=== PATIENT | male | born 1935 | race Hispanic/Latino ===

== ENCOUNTER 2018-05-27 19:27 | Emergency (ER) | payer MEDICARE, OTHER ==
[2018-05-27] MEDS ORDERED: COREG3.125 MG PO (19:42)
[2018-05-27] MEDS ORDERED: KEPPRA750 M2 PO (19:45)
[2018-05-27] MEDS ORDERED: CLOPIDOGREL75 MG PO (19:46)
[2018-05-27 19:47] LABS: GFR > 60 ML/MIN (>=60 (CALC)); GFR FOR AFR.AMER. > 60 ML/MIN (>=60 (CALC))
[2018-05-27] MEDS ORDERED: METFORMIN HCL1000 MG PO (19:47)
[2018-05-27] MEDS ORDERED: FARXIGA10 MG PO (19:48)
[2018-05-27] MEDS ORDERED: BAYER ASPIRIN E81 MG PO (19:49)
[2018-05-27 19:51] LABS: HEMATOCRIT 39.9 % (39.0-50.0); HEMOGLOBIN 12.8 g/dl (14.0-18.0); IMMATURE GRANULOCYTES 0.4 % (0.0-5.0); MEAN CELL VOLUME 90.9 fL CALC (80.0-100.0); MEAN CORPUSCULAR HGB 29.2 pG CALC (26.0-32.0); MEAN CORPUSCULAR HGB CONC 32.1 g/L CALC (32.0-36.0); NEUT# 6.52 thou/uL (1.82-7.42); RED BLOOD COUNT 4.39 mill/uL (4.70-6.10); RED CELL DISTRI WIDTH 14.2 % (11.5-15.5)
[2018-05-27 20:04] LABS: ALBUMIN 4.1 g/dL (3.2-5.0); ALKALINE PHOSPHATASE 147 u/l (38-126); ANION GAP 19 (6-22 (CALC)); BILIRUBIN, TOTAL 2.2 mg/dL (0.0-1.4); BUN 27 mg/dL (8-23); BUN/CREATININE RATIO 31 (12-20 (CALC)); CARBON DIOXIDE 20 mmol/l (22-30); CHLORIDE 104 mmol/l (95-108); CREATININE 0.9 mg/dL (0.7-1.3); GFR > 60 ML/MIN (>=60 (CALC)); GFR FOR AFR.AMER. > 60 ML/MIN (>=60 (CALC)); POTASSIUM 4.9 mmol/l (3.5-5.1); SGOT/AST 174 u/l (19-48); SODIUM 138 mmol/l (137-146); TOTAL PROTEIN 7.2 g/dL (6.3-8.2)
[2018-05-27 20:14] LABS: INTERNATIONAL NORMALIZED RATIO 1.2 RATIO (0.7-1.3); PROTHROMBIN TIME 12.9 SECONDS (9.0-12.5)
[2018-05-27 20:16] LABS: MYOGLOBIN 71 ng/mL (0 - 121)
[2018-05-27 21:14] VITALS: BP 182/84
== END 2018-05-27 21:14 | disposition short-term general hospital (02) ==
LOC: ED 19:27
PROVIDERS: Emergency Medicine
DX: R53.1 Weakness (principal); R47.01 Aphasia; G40.909 Epilepsy, unspecified, not intractable, without status epilepticus; T42.76XA Underdosing of unspecified antiepileptic and sedative-hypnotic drugs, initial encounter; Z91.128 Patient's intentional underdosing of medication regimen for other reason; Z86.73 Personal history of transient ischemic attack (TIA), and cerebral infarction without residual deficits
CPT/HCPCS: J1953

== ENCOUNTER → 2018-06-18 | Outpatient (REF) | payer MEDICARE, OTHER ==
[~2018-06-18] MED LIST: BAYER ASPIRIN E81 MG PO; CLOPIDOGREL75 MG PO; COREG3.125 MG PO; FARXIGA10 MG PO; KEPPRA750 M2 PO; METFORMIN HCL1000 MG PO
== END | disposition home or self-care (01) ==
LOC: LABSPEC 12:19
DX: R53.83 Other fatigue (principal); R74.8 Abnormal levels of other serum enzymes; D64.9 Anemia, unspecified

== ENCOUNTER 2018-09-21 23:49 | Emergency (ER) | payer MEDICARE, OTHER ==
[~2018-09-21] VITALS: Ht 175.3 cm; Wt 59.1 kg
[2018-09-22] MEDS ORDERED: EC ASPIRIN325 MG PO (00:25)
[2018-09-22] MEDS ORDERED: LASIX 40 MG TAB40 MG PO (00:25)
[2018-09-22] MEDS ORDERED: FARXIGA10 MG PO (00:26)
[2018-09-22] MEDS ORDERED: XARELTO10 MG PO (00:26)
[2018-09-22] MEDS ORDERED: METFORMIN500 MG PO (00:27)
[2018-09-22] MEDS ORDERED: POT CHLORIDE10 ME1 PO (00:27)
[2018-09-22] MEDS ORDERED: ACIDOPHILUS1 CAP PO (00:28)
[2018-09-22] MEDS ORDERED: FOLIC ACID1 MG PO (00:28)
[2018-09-22] MEDS ORDERED: COREG3.125 MG PO (00:29)
[2018-09-22] MEDS ORDERED: JANUVIA100 MG PO (00:29)
[2018-09-22] MEDS ORDERED: VITAMIN D3400 UNI2 PO (00:29)
[2018-09-22 00:58] LABS: HEMATOCRIT 36.7 % (39.0-50.0); HEMOGLOBIN 11.1 g/dl (14.0-18.0); IMMATURE GRANULOCYTES 0.4 % (0.0-5.0); MEAN CELL VOLUME 85.5 fL CALC (80.0-100.0); MEAN CORPUSCULAR HGB 25.9 pG CALC (26.0-32.0); MEAN CORPUSCULAR HGB CONC 30.2 g/L CALC (32.0-36.0); NEUT# 4.25 thou/uL (1.82-7.42); RED BLOOD COUNT 4.29 mill/uL (4.70-6.10); RED CELL DISTRI WIDTH 15.9 % (11.5-15.5)
[2018-09-22 01:08] LABS: INTERNATIONAL NORMALIZED RATIO 1.3 RATIO (0.7-1.3); PROTHROMBIN TIME 13.4 SECONDS (9.0-12.5)
[2018-09-22 01:13] LABS: ALBUMIN 4.1 g/dL (3.2-5.0); ALKALINE PHOSPHATASE 88 u/l (38-126); ANION GAP 18 (6-22 (CALC)); BUN 35 mg/dL (8-23); BUN/CREATININE RATIO 29 (12-20 (CALC)); CARBON DIOXIDE 24 mmol/l (22-30); CHLORIDE 103 mmol/l (95-108); CREATININE 1.2 mg/dL (0.7-1.3); GFR 58 ML/MIN (>=60 (CALC)); GFR FOR AFR.AMER. > 60 ML/MIN (>=60 (CALC)); POTASSIUM 4.1 mmol/l (3.5-5.1); SODIUM 141 mmol/l (137-146); TOTAL PROTEIN 7.2 g/dL (6.3-8.2)
[2018-09-22 01:19] LABS: BILIRUBIN, TOTAL 0.9 mg/dL (0.0-1.4); SGOT/AST 25 u/l (19-48)
[2018-09-22 01:25] LABS: URINE BILIRUBIN - DIPSTICK NEGATIVE (NEGATIVE); URINE BLOOD DIPSTICK MODERATE (NEGATIVE); URINE COLOR YELLOW; URINE GLUCOSE - DIPSTICK >=1000 mg/dL (NEGATIVE); URINE KETONE NEGATIVE (NEGATIVE); URINE LEUK ESTERASE NEGATIVE (NEGATIVE); URINE NITRITE - DIPSTICK NEGATIVE (Negative); URINE PH 5.5 (4.5-8.0); URINE PROTEIN - DIPSTICK NEGATIVE (NEG-TRACE); URINE UROBILINOGEN - DIPSTICK 0.2 E.U./dL (0.2)
[2018-09-22 01:45] LABS: URINE SQUAMOUS EPITHELIAL CELL RARE EPI/hpf (0-FEW); URINE WBC 0-2 WBC/hpf (0-5)
[2018-09-22 02:02] VITALS: BP 140/63
== END 2018-09-22 02:30 | disposition home or self-care (01) ==
LOC: ED 23:49
PROVIDERS: Emergency Medicine
PROC: 0HQEXZZ Repair Left Lower Arm Skin, External Approach (ICD-10-PCS; principal; 2018-09-22)
PROC: 0HQDXZZ Repair Right Lower Arm Skin, External Approach (ICD-10-PCS; 2018-09-22)
DX: S51.811A Laceration without foreign body of right forearm, initial encounter (principal); S51.812A Laceration without foreign body of left forearm, initial encounter; Z79.02 Long term (current) use of antithrombotics/antiplatelets

== ENCOUNTER 2018-09-23 10:34 | Emergency (ER) | payer MEDICARE, OTHER ==
[~2018-09-23] VITALS: Ht 175.3 cm; Wt 59.0 kg
[~2018-09-23 10:34] MED LIST changes: +ACIDOPHILUS1 CAP PO; +EC ASPIRIN325 MG PO; +FOLIC ACID1 MG PO; +JANUVIA100 MG PO; +LASIX 40 MG TAB40 MG PO; +METFORMIN500 MG PO; +POT CHLORIDE10 ME1 PO; +VITAMIN D3400 UNI2 PO; +XARELTO10 MG PO
[2018-09-23 11:27] LABS: HEMATOCRIT 37.9 % (39.0-50.0); IMMATURE GRANULOCYTES 0.8 % (0.0-5.0); MEAN CORPUSCULAR HGB 25.8 pG CALC (26.0-32.0); NEUT# 5.71 thou/uL (1.82-7.42); RED BLOOD COUNT 4.26 mill/uL (4.70-6.10); RED CELL DISTRI WIDTH 16.4 % (11.5-15.5)
[2018-09-23 11:42] LABS: ANION GAP 25 (6-22 (CALC)); BUN 27 mg/dL (8-23); BUN/CREATININE RATIO 26 (12-20 (CALC)); CHLORIDE 102 mmol/l (95-108); CREATININE 1.1 mg/dL (0.7-1.3); GFR > 60 ML/MIN (>=60 (CALC)); GFR FOR AFR.AMER. > 60 ML/MIN (>=60 (CALC)); POTASSIUM 3.9 mmol/l (3.5-5.1); SODIUM 138 mmol/l (137-146)
[2018-09-23 12:03] LABS: CARBON DIOXIDE 15 mmol/l (22-30)
[2018-09-23 15:32] VITALS: BP 119/60
== END 2018-09-23 15:32 | disposition short-term general hospital (02) ==
LOC: ED 10:34
PROVIDERS: Family Medicine
DX: G40.409 Other generalized epilepsy and epileptic syndromes, not intractable, without status epilepticus (principal); E11.9 Type 2 diabetes mellitus without complications; I10 Essential (primary) hypertension; F03.90 Unspecified dementia, unspecified severity, without behavioral disturbance, psychotic disturbance, mood disturbance, and anxiety; I25.2 Old myocardial infarction; Z86.73 Personal history of transient ischemic attack (TIA), and cerebral infarction without residual deficits

== ENCOUNTER 2018-11-29 21:06 | Emergency (ER) | payer MEDICARE, OTHER ==
[~2018-11-29] VITALS: Ht 175.3 cm; Wt 64.0 kg
[2018-11-29 22:00] VITALS: BP 100/61
== END 2018-11-29 22:00 | disposition home or self-care (01) ==
LOC: ED 21:06
DX: S61.210A Laceration without foreign body of right index finger without damage to nail, initial encounter (principal); E11.9 Type 2 diabetes mellitus without complications; I10 Essential (primary) hypertension; F03.90 Unspecified dementia, unspecified severity, without behavioral disturbance, psychotic disturbance, mood disturbance, and anxiety; I25.2 Old myocardial infarction; W45.8XXA Other foreign body or object entering through skin, initial encounter; Y93.E8 Activity, other personal hygiene; Z95.1 Presence of aortocoronary bypass graft; Z95.5 Presence of coronary angioplasty implant and graft; Z79.01 Long term (current) use of anticoagulants

== ENCOUNTER 2019-08-04 | Emergency (ER) | payer MEDICARE, OTHER ==
[~2019-08-04] MED LIST changes: +METFORMIN500 M2 PO; -METFORMIN500 MG PO
[2019-08-04 15:41] LABS: HEMOGLOBIN 9.6 g/dl (14.0-18.0); MEAN CELL VOLUME 85.1 fL CALC (80.0-100.0); MEAN CORPUSCULAR HGB 27.4 pG CALC (26.0-32.0); MEAN CORPUSCULAR HGB CONC 32.2 g/dL CAL (32.0-36.0); RED BLOOD COUNT 3.5 mill/uL (4.70-6.10); RED CELL DISTRI WIDTH 15.5 % (11.5-15.5)
[2019-08-04 15:54] LABS: ALBUMIN 3.4 g/dL (3.2-5.0); ALKALINE PHOSPHATASE 60 u/l (38-126); ANION GAP 16 (6-22 (CALC)); BILIRUBIN, TOTAL 1.8 mg/dL (0.0-1.4); BUN 38 mg/dL (8-23); BUN/CREATININE RATIO 30 (12-20 (CALC)); CARBON DIOXIDE 21 mmol/l (22-30); CHLORIDE 108 mmol/l (95-108); CREATININE 1.3 mg/dL (0.7-1.3); GFR 53 ML/MIN (>=60 (CALC)); GFR FOR AFR.AMER. > 60 ML/MIN (>=60 (CALC)); LIPASE 34 u/l (23-300); POTASSIUM 5.1 mmol/l (3.5-5.1); SGOT/AST 32 u/l (19-48); SODIUM 140 mmol/l (137-146); TOTAL PROTEIN 6.2 g/dL (6.3-8.2)
[2019-08-04 16:07] LABS: HEMATOCRIT 29.8 % (39.0-50.0); IMMATURE GRANULOCYTES 0.5 % (0.0-5.0); NEUT# 3.95 thou/uL (1.82-7.42)
[2019-08-04] MEDS ORDERED: BACTRIM DS1 TAB PO (16:32)
[2019-08-04] MEDS ORDERED: PRAVASTATIN20 MG PO (16:36)
[2019-08-04] MEDS ORDERED: LEVETIRACETAM1000 MG PO (16:36)
--- NOTE | 2019-08-07 15:45 | NUR ---
Called [facility], [address] [place] [address]; called COVID results to Haylie, patient's nurse and faxed results to [phone] with confirmation of receipt.
== END 2019-08-04 17:35 | disposition short-term general hospital (02) ==
PROVIDERS: Family Medicine
DX: J18.9 Pneumonia, unspecified organism (principal); D69.6 Thrombocytopenia, unspecified; I10 Essential (primary) hypertension; E11.9 Type 2 diabetes mellitus without complications; G40.909 Epilepsy, unspecified, not intractable, without status epilepticus; F03.90 Unspecified dementia, unspecified severity, without behavioral disturbance, psychotic disturbance, mood disturbance, and anxiety; Z86.73 Personal history of transient ischemic attack (TIA), and cerebral infarction without residual deficits; Z79.84 Long term (current) use of oral hypoglycemic drugs; Z20.828 Contact with and (suspected) exposure to other viral communicable diseases
CPT/HCPCS: J0692

== ENCOUNTER 2019-10-16 20:58 | Inpatient (IN) | payer MEDICARE, OTHER ==
[~2019-10-16] VITALS: Ht 175.3 cm; Wt 55.3 kg
[~2019-10-16 20:58] MED LIST changes: +BACTRIM DS1 TAB PO; +LEVETIRACETAM1000 MG PO; +PRAVASTATIN20 MG PO
--- NOTE | 2019-10-16 21:14 | NUR ---
TO ROOM FOR TRIAGE
--- NOTE | 2019-10-16 21:45 | NUR ---
A/O M WITH C/O R FOOT PAIN ULCER ON 2ND TOE RECIEVING OP TX.THERE.THERE IS A ESCHAR COVERED ULCER AT 2ND TOE R FOOT WITH ERYTHEMA SURROUNDING THE TOE.NO STREAKING SL EDEMA TO THWE TOE.PT HX DM
[2019-10-16 22:42] LABS: IMMATURE GRANULOCYTES 0.6 % (0.0-5.0); MEAN CORPUSCULAR HGB CONC 28.9 g/dL CAL (32.0-36.0); NEUT# 8.59 thou/uL (1.82-7.42); RED BLOOD COUNT 4.99 mill/uL (4.70-6.10); RED CELL DISTRI WIDTH 20.7 % (11.5-15.5)
[2019-10-16 22:43] LABS: HEMATOCRIT 38.1 % (39.0-50.0); MEAN CELL VOLUME 76.4 fL CALC (80.0-100.0)
[2019-10-16 22:56] LABS: ALBUMIN 3.8 g/dL (3.2-5.0); ANION GAP 17 (6-22 (CALC)); BUN 43 mg/dL (8-23); BUN/CREATININE RATIO 39 (12-20 (CALC)); CARBON DIOXIDE 20 mmol/l (22-30); CHLORIDE 113 mmol/l (95-108); CREATININE 1.1 mg/dL (0.7-1.3); GFR > 60 ML/MIN (>=60 (CALC)); GFR FOR AFR.AMER. > 60 ML/MIN (>=60 (CALC)); POTASSIUM 4.3 mmol/l (3.5-5.1); SGOT/AST 30 u/l (19-48); SODIUM 146 mmol/l (137-146); TOTAL PROTEIN 7.1 g/dL (6.3-8.2)
[2019-10-16 22:58] LABS: ALKALINE PHOSPHATASE 153 u/l (38-126); BILIRUBIN, TOTAL 0.9 mg/dL (0.0-1.4)
--- NOTE | 2019-10-16 23:35 | NUR ---
IV MED INFUSING PT IS IN NAD.[facility] IS PRIMARY HX SOURCE.
[2019-10-16 23:45] LABS: URINE BILIRUBIN - DIPSTICK NEGATIVE (NEGATIVE); URINE BLOOD DIPSTICK NEGATIVE (NEGATIVE); URINE COLOR YELLOW; URINE GLUCOSE - DIPSTICK >=1000 mg/dL (NEGATIVE); URINE KETONE NEGATIVE (NEGATIVE); URINE LEUK ESTERASE NEGATIVE (NEGATIVE); URINE NITRITE - DIPSTICK NEGATIVE (Negative); URINE PH 5.5 (4.5-8.0); URINE PROTEIN - DIPSTICK NEGATIVE (NEG-TRACE); URINE UROBILINOGEN - DIPSTICK 0.2 E.U./dL (0.2)
--- NOTE | 2019-10-17 00:50 | NUR ---
W/P/D SKIN SR NO ECTOPY.PT IS ASLEEP QUIET LY NO DRAINAGE FROM TOE ULCER
--- NOTE | 2019-10-17 01:40 | NUR ---
PT VOIDED 100CC YELLOW URINE.IV INFUSION L SL UNREMARKABLE.NO S/S OF PAIN
--- NOTE | 2019-10-17 02:22 | NUR ---
W/P/D SKIN NO FOCAL DEFICITS SR NO ECTOPY NO RESP DIFF.
--- NOTE | 2019-10-17 03:55 | NUR ---
PHONE REPIRT TO NURSE TRISTAN ON MS
--- NOTE | 2019-10-17 04:00 | NUR ---
PT TRANSPORTED TO [place] VIA IN STABNLE CONDITION
[2019-10-17 04:25] VITALS: BP 116/64
--- NOTE | 2019-10-17 05:28 | NUR ---
RECEIVED PT TO THE FLOOR VIA WHEELCHAIR TRANSPORT. PT IS DANISH SPEAKING AND POOR HISTTORIAN. RESPIRATIONS ARE NON LABORED. HEART RYTHM REGULAR. LUNG SOUNDS ARE DIMINISHED. ABDOMEN IS SOFT AND NON TENDER AND BOWEL SOUNDS ARE PRESENT. PT IS ALERT WITH CONFUSION AND INTERPRETATION DONE THROUGH STAFF.PT HAS MULTIPLE BRUISING AND SKIN TEARS ON BILATERAL ARMS. DISCOLORATION TO RIGTH FOOT AND DIABETIC ULCER NOTED THAT HAS ESCHAR NOTED. NORMAL SALINE STARTED AT 125ML\HR AND WILL START ZOSYN THERAPY.
[2019-10-17 05:55] LABS: HEMATOCRIT 36.1 % (39.0-50.0); HEMOGLOBIN 10.5 g/dl (14.0-18.0); IMMATURE GRANULOCYTES 0.5 % (0.0-5.0); MEAN CORPUSCULAR HGB 22.1 pG CALC (26.0-32.0); MEAN CORPUSCULAR HGB CONC 29.1 g/dL CAL (32.0-36.0); NEUT# 6.49 thou/uL (1.82-7.42); RED BLOOD COUNT 4.75 mill/uL (4.70-6.10); RED CELL DISTRI WIDTH 20.4 % (11.5-15.5)
--- NOTE | 2019-10-17 07:32 | NUR ---
PT LAYING IN BED. PT CONFUSED AND CALLING OUT FOR HIS "MOM". ORIENTED PT TO SELF, TIME AND PLACE. PT GRUNTING, ASKED IF HE WAS IN PAIN, PT POINTED TO RIGHT KNEE. BED ALARM IN PLACE FOR SAFETY. PT INSTRUCTED NOT TO GET OUT OF BED WITHOUT HELP. DIABETIC WOUND NOTED TO SECOND TOE OF THE RT FOOT. ASSESSMENT COMPLETED. DISCUSSED POC. CALL LIGHT IN REACH. CONTINUE TO MONITOR.
--- NOTE | 2019-10-17 12:40 | NUR ---
PT SLEEPING IN BED. RESP EVEN AND UNLABORED. CALL LIGHT IN REACH. CONTINUE TO MONITOR.
--- NOTE | 2019-10-17 17:40 | NUR ---
DAUGHTER AT BEDSIDE, PER DAUGHTER PT HAD AN APPOINTMENT SCHEDULED WITH DR BUI FOR WOUND CARE ON FRIDAY. PTS DAUGHTER OPENED TO REHAB.
[2019-10-17 19:05] VITALS: BP 104/64
--- NOTE | 2019-10-17 20:51 | NUR ---
PT IN BED WITH EYES CLOSED. NO S/S OF DISTRESS OR DISCOMFORT. NORMAL SALINE RUNNING AT 125ML/HR AND TOLERATED WELL. BRUISING NOTED TO BILATERAL ARMS AND LEGS. CONTINUES WITH ULCERS TO RIGTH 2ND TOE WITH NO DRAINAGE NOTED. MEDICATIONS GIVEN AND TOLERATED WELL. CALL LIGHT IS WITHIN REACH AND BED IN LOWEST POSITION. BED ALARM IN PLACE.
[2019-10-18 00:09] VITALS: BP 101/59
[2019-10-18 04:46] VITALS: BP 110/64
--- NOTE | 2019-10-18 06:12 | NUR ---
PT IN BED WITH EYES CLOSED. NO RESPIRATORY DISTRESS NOTED. MEDICATIONS GIVEN AND TOLERATED WELL. CONTINUES NS 0.9% AT 100ML/H AND TOLERATING WELL. PT IS FALL RISK AND BED ALARM ON AND FUNCTIONING WELL. CONTINUES ON IV ABT THERAPY WITH NO ADVERSE SIDE EFFECTS. DRESSING CLEAN DRY AND INTACT TO BILAT ARM SKIN TEARS. BED IN LOWEST POSITION AND CALL LIGHT WITHIN REACH.
[2019-10-18 07:40] VITALS: BP 116/73
--- NOTE | 2019-10-18 07:40 | NUR ---
ASSESSMENT IS COMPLETED: IV SITE IS FREE FROM REDNESS OR EDEMA. HR IS REG,PULSES ARESTRONG X4, ABD IS SOFT WITH ACTIVE BS. BREATH SOUNDS ARE CLEAR AND DIMINISHED. CONTINUE TO OSBERVE AND MONITOR.
--- NOTE | 2019-10-18 08:55 | NUR ---
IV SITE BEGAN TO LEAK AND WAS TAKEN OUT. CATHETER INTACT. ATTEMPTED X4 TOTAL TO RESTICK PT UNSUCCESSFUL .
--- NOTE | 2019-10-18 09:00 | NUR ---
HAD MYDALIS SPEAK TO PT RE: IV AND MEDICATION. WANTING WATER.GAVE WATER AND THEN PT TOOK MEDICATIONS. WILL ALLOW US TO RESTART THE IV .
[2019-10-18 11:27] LABS: HEMATOCRIT 37.6 % (39.0-50.0); HEMOGLOBIN 11.2 g/dl (14.0-18.0); MEAN CELL VOLUME 74.3 fL CALC (80.0-100.0); MEAN CORPUSCULAR HGB 22.1 pG CALC (26.0-32.0); MEAN CORPUSCULAR HGB CONC 29.8 g/dL CAL (32.0-36.0); RED BLOOD COUNT 5.06 mill/uL (4.70-6.10); RED CELL DISTRI WIDTH 20.8 % (11.5-15.5)
[2019-10-18 11:55] LABS: ANION GAP 10 (6-22 (CALC)); BUN 29 mg/dL (8-23); BUN/CREATININE RATIO 33 (12-20 (CALC)); C-REACTIVE PROTEIN 2.1 mg/dL (0-0.9); CARBON DIOXIDE 21 mmol/l (22-30); CHLORIDE 113 mmol/l (95-108); CREATININE 0.9 mg/dL (0.7-1.3); GFR > 60 ML/MIN (>=60 (CALC)); GFR FOR AFR.AMER. > 60 ML/MIN (>=60 (CALC)); POTASSIUM 3.9 mmol/l (3.5-5.1); SODIUM 139 mmol/l (137-146)
--- NOTE | 2019-10-18 12:15 | NUR ---
PT IS RELAXING IN BED WITH NO DISTRESS NOTED. NO IV SITE OBTAINED.
--- NOTE | 2019-10-18 13:46 | NUR ---
CALLED DR. CLEMENTS [facility] AT [phone] SPOKE TO FLORA GAVE INFORMTAION REGARDING THIS PT. STATED SHE WILL CALL WHEN SHE HEARS SOMETHING BACK FROM HIM.
--- NOTE | 2019-10-18 14:30 | NUR ---
FAMILY IN TO SEE PT , DEBBY ESPINOSA SPEAK TO HER RE: ULTRA SOUND AND ALSO RE: DISCHARGE PLANNING. WITH CASE MANAGEMENT. CONTINUE TO OSBERVE AND MONITOR.
--- NOTE | 2019-10-18 16:15 | NUR ---
PT IS RELAXING IN BED WITH NO DISTRESS NOTED. IV SITE IS FREE FROM REDNESS OR EDEMA. CONTINUE TO CHRISTIANNE AND AURE
[2019-10-18 16:28] VITALS: BP 123/72
[2019-10-18 18:55] VITALS: BP 119/72
--- NOTE | 2019-10-18 19:00 | NUR ---
RECEIVED REPORT FROM NURSE WILLOUGHBY PATIENT RESTING IN BED, BREATHING EVEN AND UNLABORED, CALL LIGHT AT REACH.
--- NOTE | 2019-10-18 19:44 | NUR ---
SPOKE WITH DR STUBBS, UNABLE TO GETA AN IV STARTED ON PT WILL ATTMEPT A PICCLINE IN THE AM NOT WORRIED ABOUT ABT TONIGHT.
--- NOTE | 2019-10-18 20:00 | NUR ---
PATIENT AWAKE AT THIS TIME, NO IV MD AWARE, BREATHING EVEN AND UNLABORED, MULTIPLE SKIN TEAR ON BUE, BED ALARM IN PLACE.
--- NOTE | 2019-10-19 | NUR ---
PATIENT RESTING IN BED EYES CLOSED BREATHING EVEN AND UNLABORED, BED ALARM IN PLACE.
--- NOTE | 2019-10-19 04:00 | NUR ---
PATIENT RESTING IN BED WOITH EYES CLOSED, BREATHING EVEN AND UNLABRORED CALL LIGHT AT REACH, BED ALARM IN PLACE.
[2019-10-19 04:05] VITALS: BP 131/74
[2019-10-19 05:35] LABS: HEMOGLOBIN 11.4 g/dl (14.0-18.0); MEAN CELL VOLUME 74.4 fL CALC (80.0-100.0); MEAN CORPUSCULAR HGB 22.3 pG CALC (26.0-32.0); RED BLOOD COUNT 5.11 mill/uL (4.70-6.10); RED CELL DISTRI WIDTH 20.8 % (11.5-15.5)
[2019-10-19 06:00] LABS: CREATININE 1.4 mg/dL (0.7-1.3); TOTAL PROTEIN 6.3 g/dL (6.3-8.2)
[2019-10-19 06:05] LABS: BILIRUBIN, TOTAL 1.6 mg/dL (0.0-1.4); POTASSIUM 4.7 mmol/l (3.5-5.1)
[2019-10-19 07:26] VITALS: BP 122/75
--- NOTE | 2019-10-19 08:21 | NUR ---
PT IN DEL WITH EYES OPEN. ABLE TO MAKE NEEDS KNOWN IN IRAQI AND STAF TO ASSIT WITH INTERPRETATION. rESIDENT IA ALERT WITH CONFUSED TO PLACE TIME AND EVENT. CURRENTLY NO IV LINE AND SCHEDULED FOR PICC PLACEMENT THIS AM. PT ATTEMPTING TO GET OUT OF BED WITHOUT ASSIST AND NEEDED CONTINOUS REMINDERS NOT TO GET OOB WITHOUT ASSIST. BED IN LOWEST POSITION AND CALL LIGHT IS WITHIN REACH. RESIDENT IS SITTING UP IN BED AT THIS TIME EATING BREAKFAST. HAS DRESSING TO BILATERAL ARMS THAT ARE DRY AND INTACT. CONTINUES WITH ESCHAR TO RIGTH SENCONF TOE WITH REDNESS NOTED AND LOWER EXTRENMITIES COOL TO TOUCH.ED ALARM ON. WILL CONTINUE TO OBSERVE PT.
[2019-10-19 15:00] VITALS: BP 123/70
--- NOTE | 2019-10-19 19:07 | NUR ---
RECEIVED REPORT FROM DAY NURSE PATIENT RESTING IN BED WITH EYES CLOSED, SIDE LYING POSITION, NO DISCOMFORTS NOTED AT THIS TIME, CALL LIGHT AT REACH.
[2019-10-19 20:00] VITALS: BP 109/68
--- NOTE | 2019-10-19 20:30 | NUR ---
PATIENT AWAKE AT THIS TIME, WITH PICCLINE ON BETO, PATENT FLUSHES WELL, BREATHING EVEN AND UNLABORED, NOT IN DISTRESS , BED ALARM IN PLACE.
--- NOTE | 2019-10-19 21:30 | NUR ---
BLOOD SUGAR 70MG/DL, DID NOT EAT SUPPER YET PATIENT AWAKE ASSISTED TO FEED.
--- NOTE | 2019-10-20 | NUR ---
BED BATH GIVEN AT THIS TIME, PATEINET AWAKE CALLING MOM, BREATHING EVEN UNLABORED, BED ALARM IN PLACE.
[2019-10-20 04:15] VITALS: BP 121/78
--- NOTE | 2019-10-20 05:04 | NUR ---
PATIENT AWAKE AT THIS TIME, CALLS "MOM" BREATHING EVEN UNLABORED, NOT IN DISTRESS CALL LIGHT AT REACH.
--- NOTE | 2019-10-20 08:49 | NUR ---
RECEIVED AM REPORT ON PT AND IN BED WITH EYES OPEN AND IN PLEASNAT MOOD. PT IS UKRAINIAN SPEAKING. BREAKFAST INTAKE ADEQUATE ADEQUATE. MEDICATIONS GIVEN ADN TOLERATED WELL. SSC GIVEN PRESCRIBED. DRESSING INTACT TI BILAT ARMS DUE TO SKIN TEARS. PT REMOVED DRESSING TO RIGHT 2ND TOE. WILL REAPPLY DRESSING. HOB ELEVATED AND BED IN LOWEST POSITION. BED ALARM ON. WILL CONTINUE TO OBSERVE.
[2019-10-20 10:17] LABS: ALBUMIN 3.1 g/dL (3.2-5.0); ALKALINE PHOSPHATASE 155 u/l (38-126); BILIRUBIN, TOTAL 1.9 mg/dL (0.0-1.4); BUN 32 mg/dL (8-23); BUN/CREATININE RATIO 28 (12-20 (CALC)); CHLORIDE 114 mmol/l (95-108); CREATININE 1.2 mg/dL (0.7-1.3); GFR 58 ML/MIN (>=60 (CALC)); GFR FOR AFR.AMER. > 60 ML/MIN (>=60 (CALC)); POTASSIUM 4.2 mmol/l (3.5-5.1); SGOT/AST 301 u/l (19-48); SODIUM 138 mmol/l (137-146); TOTAL PROTEIN 6.3 g/dL (6.3-8.2)
[2019-10-20 10:18] LABS: ANION GAP 15 (6-22 (CALC)); CARBON DIOXIDE 13 mmol/l (22-30)
[2019-10-20 16:15] VITALS: BP 94/59
[2019-10-20 18:54] VITALS: BP 105/71
--- NOTE | 2019-10-20 19:03 | NUR ---
ULTRASOUND OF LIVER COMPLETED AND PT DIET REINSTATED. IN BED WITH EYES CLOSED. FLUIDS GIVEN AND TOLERATED WELL. MD IN AND AWARE OF ABNORMAL LABS. BED IN LOWEST POSITION AND CALL LIGHT WITHIN REACH. BED ALARM ON.
--- NOTE | 2019-10-20 19:22 | NUR ---
PT RESTING IN BED NO SIGNS OF DISTRESS NOTED, RESP EVEN AND UNLABORED. PT CONFUSED, CAN ONLY STATE HIS NAME. ATTEMPTED TO DISCUSS POC, PT REQUIRES REINFORCMENT. BED ALARM FOR SAFETY. IVF INFUSING WELL, DRESSINGS TO BUE AND FOOT CDI. ASSESSMENT COMPLETED, CALL LIGHT IN REACH,CONTINUE TO MONITOR.
--- NOTE | 2019-10-20 23:10 | NUR ---
PT YELLING OUT WITH EYES CLOSED, EASILY AROUSED TO VERBAL STIMULI, ASSISTED TRAUMA MANAGER TO CHANGE PT'S BRIEF, PT C/O BEING COLD WARM BLANKET PROVIDED.BED ALARM IN PLACE, CALL LIGHT IN REACH,CONTINUE TO MONITOR.
--- NOTE | 2019-10-21 04:00 | NUR ---
PT CONFUSED CONTINUES TO YELL OUT FOR HIS MOM, ATTEMPTED TO DRAW PT FROM PICC LINE, UNABLE TO OBTAIN, LAB NOTIFIED FOR VENOUS LAB DRAW, BED ALARM FOR SAFETY, CALL LIGHT IN REACH,CONTINUE TO MONITOR.
[2019-10-21 04:18] VITALS: BP 109/63
[2019-10-21 05:36] LABS: HEMOGLOBIN 11.5 g/dl (14.0-18.0); MEAN CELL VOLUME 72.9 fL CALC (80.0-100.0); MEAN CORPUSCULAR HGB 22.1 pG CALC (26.0-32.0); MEAN CORPUSCULAR HGB CONC 30.3 g/dL CAL (32.0-36.0); RED BLOOD COUNT 5.21 mill/uL (4.70-6.10)
[2019-10-21 06:03] LABS: ALBUMIN 2.8 g/dL (3.2-5.0); ALKALINE PHOSPHATASE 136 u/l (38-126); ANION GAP 12 (6-22 (CALC)); BILIRUBIN, TOTAL 1.5 mg/dL (0.0-1.4); BUN 29 mg/dL (8-23); BUN/CREATININE RATIO 28 (12-20 (CALC)); CARBON DIOXIDE 15 mmol/l (22-30); CHLORIDE 115 mmol/l (95-108); GFR > 60 ML/MIN (>=60 (CALC)); GFR FOR AFR.AMER. > 60 ML/MIN (>=60 (CALC)); POTASSIUM 3.9 mmol/l (3.5-5.1); SGOT/AST 239 u/l (19-48); SODIUM 138 mmol/l (137-146); TOTAL PROTEIN 5.7 g/dL (6.3-8.2)
--- NOTE | 2019-10-21 06:10 | NUR ---
PT GLUCOSE 54 PER AM LABS, PT RESTING IN BED, OFFERED ORANGE JUICE, PT SAT UP IN BED AND DRANK ORANGE JUICE, NO SIGNS OF DISTRESS NOTED, RESP EVEN AND UNLABORED. BED ALARM FOR SAFETY, CALL LIGHT IN REACH,CONTINUE TO MONITOR.
[2019-10-21 08:00] VITALS: BP 127/78
[2019-10-21 08:37] VITALS: BP 127/78
--- NOTE | 2019-10-21 09:00 | NUR ---
PT CLEANED UP BY CNAs PER BOWEL AND BLADDER INCONTINENCE. PT AWAKE, ALERT, CONFUSED. PT APPEARS ELDERLY AND FRAIL. LUNGS CLEAR, RA. NO DISTRESS, NO COMPLAINTS.
--- NOTE | 2019-10-21 10:46 | NUR ---
CALLED DR. VEGA AND SPOKE TO HIM REGARDING CONSULTATION ON THIS PT FOR GALLSTONES.
[2019-10-21] MEDS ORDERED: DOXYCYCL HYC100 MG PO (11:19)
[2019-10-21] MEDS ORDERED: KEFLEX500 M1 PO (11:19)
--- NOTE | 2019-10-21 14:44 | NUR ---
PT HAS BEEN DISCHARGED TO [facility]. BROWN FROM [facility] STAFF PICKED UP PT AND PUSHED WHEELCHAIR TO FACILITY ACCOMPANIED BY PT'S DAUGHTER. DAUGHTER VERBALIZES UNDERSTANDING OF DC INSTRUCTIONS, SIGNS DISCHARGE PAPER. PT LEAVES [facility] IN STABLE CONDITION. DIAPER CHANGED JUST PRIOR TO DEPARTURE.
== END 2019-10-21 14:20 | DRG 638 ==
LOC: ED 20:58 → ED-I 10-17 00:04 → ED 10-17 00:41 → ED-I 10-17 00:42 → MS2 10-17 01:06
PROVIDERS: Emergency Medicine; Internal Medicine; Nurse Practitioner Family; ADMIT Internal Medicine; ATTEND Internal Medicine
PROC: 05H933Z Insertion of Infusion Device into Right Brachial Vein, Percutaneous Approach (ICD-10-PCS; principal; 2019-10-19)
DX: E11.621 Type 2 diabetes mellitus with foot ulcer (principal); E87.2 Acidosis; L97.519 Non-pressure chronic ulcer of other part of right foot with unspecified severity; L03.031 Cellulitis of right toe; E11.65 Type 2 diabetes mellitus with hyperglycemia; I10 Essential (primary) hypertension; F03.90 Unspecified dementia, unspecified severity, without behavioral disturbance, psychotic disturbance, mood disturbance, and anxiety; G40.909 Epilepsy, unspecified, not intractable, without status epilepticus; K80.80 Other cholelithiasis without obstruction; E80.6 Other disorders of bilirubin metabolism; R74.8 Abnormal levels of other serum enzymes; I25.2 Old myocardial infarction; Z86.73 Personal history of transient ischemic attack (TIA), and cerebral infarction without residual deficits; Z79.84 Long term (current) use of oral hypoglycemic drugs; Z95.1 Presence of aortocoronary bypass graft; Z95.0 Presence of cardiac pacemaker; Z20.828 Contact with and (suspected) exposure to other viral communicable diseases

== ENCOUNTER 2019-11-30 12:41 | Inpatient (IN) | payer MEDICARE, OTHER ==
[~2019-11-30] VITALS: Ht 175.3 cm; Wt 61.0 kg
[~2019-11-30 12:41] MED LIST changes: +DOXYCYCL HYC100 MG PO; +KEFLEX500 M1 PO
--- NOTE | 2019-11-30 12:41 | NUR ---
PATIENT TO ROOM VIA EMS STRETCHER.
--- NOTE | 2019-11-30 12:45 | NUR ---
PT ARRIVED VIA EMS STRETCHER, PT APPEARS CONFUSED, DROWSY, BRUISING NOTED TO BILATERAL ARMS, SWELLING NOTED TO RIGHT ARM, SLEEVE ALSO NOTED ON THIS ARM. PT HAS DRESSINGS TO RLE, THIS FOOT EVALUATED BY DR LAMAR WITH NO NEW ORDERS PERTAINING TO FOOT. MONITOR SHOWS VENTRICULAR PACED RHYTHM. BP 101/50 UPON ARRIVAL TO ER. ACCUCHECK UPON ARRIVAL WAS 247.
--- NOTE | 2019-11-30 13:15 | NUR ---
SPOKE TO LEX AT [facility]. SHE REPORTS THAT PATIENT HAS BEEN DECLINING FOR THE PAST WEEK WITH INCREASING CONFUSION AND WEAKNESS. YESTERDAY PATIENTS SATURATION DROPPED TO 74% AND HE WAS PLACED ON 2L NC AND NOTICIED YELLOWING OF SKIN. TODAY PATIENT'S SKIN APPEARED MORE YELLOW SO DR DOTSON ADVISED TO SEND HIM TO THE ED.
[2019-11-30 13:22] LABS: HEMATOCRIT 32.7 % (39.0-50.0); IMMATURE GRANULOCYTES 0.5 % (0.0-5.0); MEAN CELL VOLUME 69.6 fL CALC (80.0-100.0); MEAN CORPUSCULAR HGB 19.4 pG CALC (26.0-32.0); MEAN CORPUSCULAR HGB CONC 27.8 g/dL CAL (32.0-36.0); NEUT# 6.7 thou/uL (1.82-7.42); RED BLOOD COUNT 4.7 mill/uL (4.70-6.10); RED CELL DISTRI WIDTH 24.6 % (11.5-15.5)
[2019-11-30 13:26] LABS: URINE BILIRUBIN - DIPSTICK NEGATIVE (NEGATIVE); URINE BLOOD DIPSTICK NEGATIVE (NEGATIVE); URINE CLARITY CLEAR; URINE COLOR YELLOW; URINE GLUCOSE - DIPSTICK >=1000 mg/dL (NEGATIVE); URINE KETONE NEGATIVE (NEGATIVE); URINE LEUK ESTERASE NEGATIVE (Negative); URINE NITRITE - DIPSTICK NEGATIVE (Negative); URINE PH 5.5 (4.5-8.0); URINE PROTEIN - DIPSTICK NEGATIVE (NEG-TRACE); URINE SPECIFIC GRAVITY 1.015
[2019-11-30 13:27] LABS: HEMOGLOBIN 9.1 g/dl (14.0-18.0)
[2019-11-30 13:29] LABS: ALBUMIN 3.1 g/dL (3.2-5.0); CREATININE 1.7 mg/dL (0.7-1.3); TOTAL PROTEIN 6.2 g/dL (6.3-8.2)
[2019-11-30 13:32] LABS: BILIRUBIN, TOTAL 2.2 mg/dL (0.0-1.4)
[2019-11-30] MEDS ORDERED: ASPIRIN ADULT L81 M2 PO (13:37)
[2019-11-30] MEDS ORDERED: JARDIANCE25 MG PO (13:38)
[2019-11-30] MEDS ORDERED: LEVEMIR FL100 UNIT/M SC (13:53)
[2019-11-30] MEDS ORDERED: MULTI VIT PO (13:54)
[2019-11-30] MEDS ORDERED: MIRTAZAPINE15 MG PO (13:55)
[2019-11-30] MEDS ORDERED: XARELTO10 MG PO (13:56)
--- NOTE | 2019-11-30 14:41 | NUR ---
DR LAMAR AT BEDSIDE WITH PT'S DAUGHTER. VERBAL ORDER TO ONLY GIVE ONE LITER OF NS AND HOLD ANTIBIOTICS GIVEN AT THIS TIME.
[2019-11-30 15:00] VITALS: BP 105/67
--- NOTE | 2019-11-30 15:06 | NUR ---
PT ARRIVED TO UNIT VIA STRETCHER WITH ER STAFF; EYES CLOSED AND LETHARGIC; RESPONDS TO PAINFUL STIMULI; MOVES ARMS AND LEGS IN AN EFFORT TO RESIST CARE, BUT VERY WEAK. OPENS EYES AND IS MINIMALLY VERBAL WITH GARBLED SPEECH. RESPIRATIONS EVEN AND UNLABORED ON OXYGEN 2L VIA NC. ASSISTED FROM STRETCHER TO BED WITH 3 PERSON ASSIST. BRIEF REMOVED FOR SKIN ASSESSMENT; NO INCONTINENCE NOTED. STAGE I PRESSURE WOUND TO COCCYX; RIGHT ARM RED, SWOLLEN, BRUISED, WITH VERY THIN SKIN, RIGHT 2ND TOE NECROTIC WITH ULCER BETWEEN 2ND AND 3RD TOE. SKIN IS JAUNDICED AND APPEARS MALNURISHED. LUNGS ARE CLEAR. PACEMAKER APPARENT TO LEFT UPPER CHEST. TELE INTACT. IV FLUID BOLUS INFUSING UPON ARRIVAL; IV SITE APPEARS HEATLHY. PT RESPOSITIONED WITH PILLOWS AND BED ALARM TURNED ON FOR SAFETY. NEEDS ANTICIPATED BY STAFF.
--- NOTE | 2019-11-30 15:16 | NUR ---
REPORT TO LEENA BARAKAT
--- NOTE | 2019-11-30 16:50 | NUR ---
PT TRANSPORTED TO CT VIA STRETCHER WITH [facility] STAFF IN STABLE CONDITION.
--- NOTE | 2019-11-30 17:15 | NUR ---
PT RETURNED TO FLOOR AND ASSIGNED ROOM 260 FOR CLOSER MONITORING. ASSISTED BACK INTO BED WITH 3 PERSON ASSIST; PT TOTAL ASSIST; Q2 TURN AND REPOSITION. 16F OSORIO PLACED AT THIS TIME WITH IMMEDIATE RETURN OF DARK YELLOW URINE. OXYGEN IN PLACE AT 2L VIA NC.
--- NOTE | 2019-11-30 18:01 | NUR ---
RT AT BEDSIDE FOR BREATHING TREATMENT. IV FLUIDS INITIATED AT 50ML/HR. PT SHALLOW BREATHING. JAUNDICE SKIN. REMAINS LETHARGIC.
--- NOTE | 2019-11-30 18:54 | NUR ---
PT SAT UP IN HIGH FOWLERS AND OFFERED DINNER; DECLINED, BUT DID DRINK WATER. CAN MAKE SOME NEEDS KNOWN. MOSTLY NONVERBAL; GARBLED SPEECH. RIGHT SIDED WEAKNESS DUE TO HX OF CVA; SIDE RAILS OF BED PADDED FOR SEIZURE PRECAUTIONS. SAFETY MEASURES IN PLACE.
[2019-11-30 19:07] VITALS: BP 103/70
--- NOTE | 2019-11-30 20:20 | NUR ---
PT RESTING IN BED, NO SIGNS OF DISTRESS NOTED, RESP EVEN AND UNLABORED, SHALLOW. 02 2L NC, PT NON VERBAL. NOTED CONTRACTURES TO BLE, HEEL PROTECTORS TO FEET BILAT. NOTED NECROTIC TOE TO R 2ND DIGIT, IVF TO LW, OSORIO DRAINING TO GRAVITY, CLEAR YELLOW URINE. STAGE 1 TO BUTTOCK, ASSESSMENT COMPLETED, CALL LIGHT IN REACH,CONTINUE TO MONITOR.
--- NOTE | 2019-11-30 20:49 | NUR ---
PT RESTING IN BED, NO SIGNS OF DISTRESS NOTED, RESP EVEN AND UNLABORED. ATTEMPTED TO GIVE PT WATER PT REFUSING, PT NOT ATTEMPTING TO TAKE MEDS, CALL LIGHT IN REACH, BED ALARM FOR SAFETY, CONTINUE TO MONITOR.
[2019-11-30 23:30] VITALS: BP 87/61
[2019-12-01] VITALS (7 sets, daily range): BP systolic 88–109; BP diastolic 61–78
--- NOTE | 2019-12-01 | NUR ---
PT RESTING IN BED, NO SIGNS OF DISTRES SNOTED, RESP EVEN AND UNLABORED. CALL LIGHT IN REACH,CONTINUE TO MONITOR.
--- NOTE | 2019-12-01 04:04 | NUR ---
PT RESTING IN BED, REPOSITIONED IN BED, CALL LIGHT IN REACH,CONTINUE TO MONITOR.
[2019-12-01 06:15] LABS: HEMATOCRIT 30.8 % (39.0-50.0); HEMOGLOBIN 9.2 g/dl (14.0-18.0); IMMATURE GRANULOCYTES 0.7 % (0.0-5.0); MEAN CELL VOLUME 65.8 fL CALC (80.0-100.0); MEAN CORPUSCULAR HGB 19.7 pG CALC (26.0-32.0); MEAN CORPUSCULAR HGB CONC 29.9 g/dL CAL (32.0-36.0); NEUT# 6.25 thou/uL (1.82-7.42); RED BLOOD COUNT 4.68 mill/uL (4.70-6.10); RED CELL DISTRI WIDTH 23.6 % (11.5-15.5)
[2019-12-01 06:22] LABS: ALBUMIN 2.8 g/dL (3.2-5.0); BILIRUBIN, TOTAL 1.8 mg/dL (0.0-1.4); CREATININE 1.4 mg/dL (0.7-1.3); POTASSIUM 3.4 mmol/l (3.5-5.1); TOTAL PROTEIN 5.8 g/dL (6.3-8.2)
--- NOTE | 2019-12-01 11:09 | NUR ---
PER PENELOPE LUIS,. THIS NURSE CALLED AND SPOKE TO DAUGHTER AND REQUESTED HER PRESENCE AT FACILITY TO SPEAK WITH MD FOR FURTHER TX. DAUGHTER STATES SHE IS ON HER WAY AND WILL BE IN BUILDING BY NOON.
--- NOTE | 2019-12-01 13:24 | NUR ---
PT LAYING IN BED WITH DAUGHTER AT BEDSIDE. PT CONTINOUSLY CALLS WATER IN [place]. DAUGHTER ASSISTING WITH WATER AND FEEDING TO PT.
--- NOTE | 2019-12-01 16:59 | NUR ---
PT IN ROOM SLEEPING WELL IN BED WITH DAUGHTER AT BEDSIDE.
--- NOTE | 2019-12-01 19:31 | NUR ---
DAUGHTER AT BEDSIDE REQUESTING HOSPICE CONSULT WITH INTENTIONS TO D/C HOME WITH HOSPICE.
--- NOTE | 2019-12-01 20:25 | NUR ---
ASSESSMENT COMPLETED. PT. ALERT TO SELF ONLY. IV SITE PATENT AND ORDERED IVF INFUSING WELL. DOPPLER PEDAL PULSES. RIGHT 2ND DIGIT NECROTIC AND BLACKENED. BILATERAL HEEL PROTECTORS IN PLACE. SNACK PROVIDED AND SCHED MEDS GIVEN. CLEANED OF A SCANT BM. O2 REAPPLIED. CALL LIGHT IS IN REACH. WILL CONTINUE TO MOTNIOR.
--- NOTE | 2019-12-02 | NUR ---
GENERAL SUPERINTENDENT IN AT BEDSIDE OBTAINING VS. PT. INTERMITTENTLY TALKING TO SELF. NO DISTRESS NOTED.
[2019-12-02 04:46] VITALS: BP 91/65
--- NOTE | 2019-12-02 05:00 | NUR ---
PT. CLEANED OF A SCANT BM; JANINE CARE PROVIDED. REPOSITIONED.
[2019-12-02 06:50] VITALS: BP 93/66
[2019-12-02 09:35] LABS: HEMOGLOBIN 8.9 g/dl (14.0-18.0); MEAN CELL VOLUME 71.6 fL CALC (80.0-100.0); MEAN CORPUSCULAR HGB 19.3 pG CALC (26.0-32.0); RED BLOOD COUNT 4.61 mill/uL (4.70-6.10); RED CELL DISTRI WIDTH 25.1 % (11.5-15.5)
[2019-12-02 09:53] LABS: ANION GAP 13 (6-22 (CALC)); BUN 72 mg/dL (8-23); BUN/CREATININE RATIO 54 (12-20 (CALC)); CARBON DIOXIDE 17 mmol/l (22-30); CHLORIDE 126 mmol/l (95-108); CREATININE 1.3 mg/dL (0.7-1.3); GFR 53 ML/MIN (>=60 (CALC)); GFR FOR AFR.AMER. > 60 ML/MIN (>=60 (CALC)); MAGNESIUM 2.5 mg/dL (1.6-2.3); POTASSIUM 3.8 mmol/l (3.5-5.1); SODIUM 152 mmol/l (137-146)
--- NOTE | 2019-12-02 09:59 | NUR ---
PRELIMINARY BLOOD CULTURE CALLED TO JANELLE NEGRETE. 04/24 VIALS SHOW GRAM (+) COCCI. NO NEW ORDERS.
[2019-12-02 11:30] VITALS: BP 93/65
--- NOTE | 2019-12-02 13:52 | NUR ---
PTs DAUGHTER CAME DURING LUNCH TO FEED THE PATIENT. SHE WAS INSTRUCTED TO PROVIDE SMALL BITES. HOB WAS ELEVATED TO HIGH FOWLERS. HE WAS ABLE TO TOLERATE VERY SMALL BITES AND SIPS OF WATER. AT 1310 PTs OTHER DAUGHTER (NADJA SRIVASTAVA) CAME TO VISIT PATIENT. BEAUTY SPECIALIST CAME TO NURSE TO REPORT PTs RESPIRATIONS WERE SHALLOW. NURSE ENTERED ROOM TO FIND PT WITH HOB ELEVATED TO HIGH FOWLERS, DAUGHTER AT BEDSIDE. PT WITH SHALLOW RESPIRATIONS WITH 10-15 SEC PERIODS OF APENA. VERY FAINT HEART SOUNDS. PT COLD TO TOUCH. I TRIED TO EXPLAIN THE PATIENT IS NEARING THE END, NADJA SRIVASTAVA STATED SHE DID NOT UNDERSTAND, SHE HAD AN SAMOAN SPEAKING NIECE BY THE NAME OF SHERICE. SHE CALLED SHERICE VIA HER CELL. I EXPLAINED THE PATIENTS S/S. SHE ASKED IF THE PATIENT HAD TIME TO TRANSFER TO HOSPICE SO MORE PEOPLE CAN VISIT. I STATED THE PATIENT WILL NOT MAKE IT THAT LONG. SHERICE ASKED TO SPEAK TO NADJA SRIVASTAVA TO TRANSLATE. PT WITH LONGER PERIODS OF APNEA. NURSE DIANA WALKED IN THE ROOM TO REPORT PATIENT WAS TACHY IN THE 140s. I WAS ABOUT TO CHECK THE PATIENT VITAL SIGNS. NURSE DIANA CALLED TELE, PT WAS ASYSTOLE. I CONFIRMED VIA AUSCULATION AND PALPATION PATIENT AT 1334. I ASKED TO SPEAK AGAIN TO SHERICE TO INFORM HER. SHE ASKED IF MORE FAMILY CAN COME TO SEE HIM STEAD OF 1 BY 1. NURSE DIANA TO CONSULT ADMINISTRATION. PENELOPE LUIS INFORMED. NURSE DIANA CONFIRMED WITH ADMIN THAT 4 VISITORS MAY SEE THE PATIENT. NURSE WENT TO FIND NADJA SRIVASTAVA BUT SHE LEFT THE FLOOR. I CALLED NADJA SRIVASTAVA, SHE PROVIDED SHERICE's CELL NUMBER [phone]. I CALLED TO INFORM HER ABOUT THE VISITATIONS. SHE SAID MANY FAMILY WERE IN [place]. I PROVIDED OUR PHONE NUMBER TO CALL ONCE ARRANGEMENTS WERE SECURED. I EXPRESSED MY CONDOLENCES. SHERICE EXPRESSED UNDERSTANDING. [facility] CALLED. DEFERRED EYES DUE TO AGE.
--- NOTE | 2019-12-02 16:35 | NUR ---
NURSE SPOKE TO JOSE ROBERTO (SHE IS SPEAKING ON BEHALF OF THE PATIENTS POA) [facility] WAS SELECTED TO PROVIDE SERVICES. HOWEVER, THEY WILL NOT BE ABLE TO PROGRAM INSTRUCTOR THE BODY TONIGHT. I SPOKE TO DINH ([phone]) I WILL INFORM NURSE ROAD CONDUCTOR TO ARRANGE FOR ALTERNATIVE PROGRAM INSTRUCTOR TO MANAGE THE BODY IN THE MEANTIME. JOSE ROBERTO WILL BE CALLED AND INFORMED OF ARRANGEMENTS. NURSE TO CALL [facility]'S ANSWERING SERVICE ONCE ARRANGEMENTS MADE.
--- NOTE | 2019-12-02 18:18 | NUR ---
I SPOKE TO CICI OF [facility] CONCERNING PICKING UP THE PATIENT TONIGHT, [facility] WILL RETRIEVE THE BODY 12/03/2019. CICI STATED BOTH [facility] [place] [facility] [place] FULL. I SPOKE TO HOSPITAL WIRE HANGER MARCO TO INFORM HER OF THE SITUATION. SHE STATED TO CALL THE OTHER SERVICES IN THE AREA. I CALLED [facility] [phone] (JUST RANG, NO ANSWERING SERVICE) AND IAN PRITCHETT [phone] (OUT OF SERVICE). I CALLED [facility] HOME ABOUT OUR SITUATION. DINH ([phone]) TO CALL HOSPITAL WITH AN UPDATE IF THEY CAN SUSTAINMENT LOGISTICS ANALYST THE BODY TONIGHT.
--- NOTE | 2019-12-02 18:42 | NUR ---
SPOKE TO JUNAID CULP [facility]. SHE STATED HER STAFF (SURINDER) WILL BE ABLE TO MANNEQUIN SANDER AND FINISHER THE PATIENT. HOWEVER, IT WILL TAKE 3 HOURS TONIGHT. I PROVIDED HER WITH HOPSITAL ADDRESS AND PATIENT ROOM. BODY IS PREPARED AND READY FOR MANNEQUIN SANDER AND FINISHER. PATIENT FAMILY VERIFIED HE HAD NO PERSONAL BELONGINGS PRESENT. I WILL CALL THE FAMILY AND HOSPITAL SIMULATION ANALYST TO UPDATE.
--- NOTE | 2019-12-02 18:45 | NUR ---
CALLED JOSE ROBERTO (BEHAVIORAL SCIENCES DEPARTMENT CHAIR FOR [facility]) AT 1846 TO INFORM THE PATIENT WILL BE PICKED UP BY SURINDER WITH [facility] TONIGHT.
--- NOTE | 2019-12-02 19:05 | NUR ---
NURSE UPDATED BACCARAT DEALER ANNI AT 1900.
== END 2019-12-02 22:12 | disposition expired | DRG 640 ==
LOC: ED 12:41 → ED-I 14:15 → ED 14:28 → ED-I 14:29 → MS2 14:45
PROVIDERS: Nurse Practitioner; ADMIT Internal Medicine; ATTEND Internal Medicine
PROC: 0T9B70Z Drainage of Bladder with Drainage Device, Via Natural or Artificial Opening (ICD-10-PCS; principal; 2019-11-30)
DX: E86.0 Dehydration (principal); J18.9 Pneumonia, unspecified organism; E11.52 Type 2 diabetes mellitus with diabetic peripheral angiopathy with gangrene; I96 Gangrene, not elsewhere classified; E87.2 Acidosis; E87.8 Other disorders of electrolyte and fluid balance, not elsewhere classified; E87.0 Hyperosmolality and hypernatremia; I10 Essential (primary) hypertension; F03.90 Unspecified dementia, unspecified severity, without behavioral disturbance, psychotic disturbance, mood disturbance, and anxiety; R19.5 Other fecal abnormalities; E11.621 Type 2 diabetes mellitus with foot ulcer; L97.519 Non-pressure chronic ulcer of other part of right foot with unspecified severity; D63.8 Anemia in other chronic diseases classified elsewhere; E11.65 Type 2 diabetes mellitus with hyperglycemia; R79.89 Other specified abnormal findings of blood chemistry; I25.2 Old myocardial infarction; G40.909 Epilepsy, unspecified, not intractable, without status epilepticus; M62.462 Contracture of muscle, left lower leg; M62.461 Contracture of muscle, right lower leg; Z66 Do not resuscitate; Z95.1 Presence of aortocoronary bypass graft; Z79.4 Long term (current) use of insulin; Z79.82 Long term (current) use of aspirin; Z79.01 Long term (current) use of anticoagulants; Z95.0 Presence of cardiac pacemaker; Z86.73 Personal history of transient ischemic attack (TIA), and cerebral infarction without residual deficits; Z20.828 Contact with and (suspected) exposure to other viral communicable diseases